=== PATIENT | female | born 1955 | race Caucasian/White ===

== ENCOUNTER → 2017-03-09 | Outpatient (CLI) | payer OTHER ==
--- NOTE | 2017-03-09 14:22 | XR ---
EXAMINATION TYPE: XR shoulder complete RT DATE OF EXAM: 03/09/2017 2:18 PM COMPARISON: NONE HISTORY: Pain TECHNIQUE: Three views are submitted. FINDINGS: The osseous structures are intact. There is no acute fracture or dislocation. The AC joint is maint ained. Chronic rib deformity on the right. Stable from 05/02/2015. Nodular density appears stable from 2014 likely related to the anterior margin of the first rib. IMPRESSION: 1. No acute process.
--- NOTE | 2017-03-11 11:53 | MM ---
Reason for exam: screening (asymptomatic). Last mammogram was performed 1 year and 6 months ago. History: Patient is postmenopausal. Physical Findings: A clinical breast exam by your physician is recommended on an annual basis and results should be correlated with mammographic findings. MG Screening Mammo w CAD Bilateral CC and MLO view(s) were taken. Prior study comparison: September 05, 2015, bilateral MG screening mammo w CAD. April 24, 2014, bilateral MG screening mammo w CAD. There are scattered fibroglandular densities. No significant changes when compared with prior studies. ASSESSMENT: Negative, BI-RAD 1 RECOMMENDATION: Routine screening mammogram of both breasts in 1 year.
== END | disposition home or self-care (01) ==
LOC: RADMAMWWP 13:51
PROVIDERS: ATTEND Family Medicine
DX: Z12.31 Encounter for screening mammogram for malignant neoplasm of breast (principal); M25.511 Pain in right shoulder
CPT/HCPCS: 73030; G0202

== ENCOUNTER → 2017-06-17 | Outpatient (CLI) | payer OTHER ==
[2017-06-17 13:44] LABS: EKG EKG PERFORMED
[2017-06-17 14:19] LABS: Basophils % (A) 1 %; CH 34.9; CHCM 34.4; Eosinophils # (A) 0.1 k/uL (0-0.7); Eosinophils % (A) 2 %; HCT 46.5 % (34.0-46.0); HGB 15.8 gm/dL (11.4-16.0); Luc % (Auto) 1; Lymphocytes # (A) 1.3 k/uL (1.0-4.8); Lymphocytes % (A) 18 %; MCH 34.6 pg (25.0-35.0); MCHC 33.9 g/dL (31.0-37.0); MCV 101.9 fL (80.0-100.0); Macrocytosis Slight; Mean Platelet Volume 8.6; Monocytes # (A) 0.4 k/uL (0-1.0); Monocytes % (A) 6 %; Neutrophils # (A) 5.1 k/uL (1.3-7.7); Neutrophils % (A) 72 %; RBC 4.56 m/uL (3.80-5.40); RDW 13.7 % (11.5-15.5)
[2017-06-17 14:22] LABS: Anion Gap 9 mmol/L; Blood Urea Nitrogen 12 mg/dL (7-17); Calcium 9.6 mg/dL (8.4-10.2); Carbon Dioxide 23 mmol/L (22-30); Chloride 108 mmol/L (98-107); Glucose 97 mg/dL (74-99); Non-African American GFR(MDRD) >60 (>60 ml/min/1.73 sqM); Potassium 4.6 mmol/L (3.5-5.1); Sodium 140 mmol/L (137-145)
[2017-06-17 14:23] LABS: Appearance,Urine Clear (Clear); Bilirubin,Urine Negative (Negative); Glucose,Urine (UA) Negative (Negative); Ketones,Urine Negative (Negative); Leukocyte Esterase,Urine Negative (Negative); Mucus,Urine Rare /hpf; Nitrite,Urine Negative (Negative); PH, Urine 6.5 (5.0-8.0); Particle Count 1704; Protein,Urine Negative (Negative); Prothrombin Time 10.1 sec (9.0-12.0); RBC,Urine 2 /hpf (0-5); Specific Gravity,Urine 1.013 (1.001-1.035); Squamous Epithelial Cell,Urine 1 /hpf (0-4); UA Billing (MACRO vs. MICRO) MICRO; Urobilinogen,Urine <2.0 mg/dL (<2.0); WBC,Urine 1 /hpf (0-5)
--- NOTE | 2017-06-17 14:38 | XR ---
EXAMINATION TYPE: XR chest 2V DATE OF EXAM: 06/17/2017 COMPARISON: Prior chest x-ray 05/02/2015 HISTORY: Presurgical testing TECHNIQUE: Frontal and lateral views of the chest are obtained. FINDINGS: Right upper lobe chest wall deformity shows a stable appearance. No evident pneumonia, pne umothorax, or pleural effusion. There may be spinal curvature. Cardiac mediastinal silhouette, pulmon rena vascularity and elsa within normal limits. IMPRESSION: Fourth rib on the right shows an asymmetric appearance as on prior exam. No acute abnorm alities evident.
== END | disposition home or self-care (01) ==
LOC: LABPAT 13:34
PROVIDERS: ATTEND Orthopaedic Surgery Orthopaedic Surgery of the Spine
DX: Z01.818 Encounter for other preprocedural examination (principal); M95.4 Acquired deformity of chest and rib; M48.02 Spinal stenosis, cervical region; Z01.810 Encounter for preprocedural cardiovascular examination
CPT/HCPCS: 36415; 71020; 80048; 81001; 85025; 85610; 85730; 93005

== ENCOUNTER 2017-06-24 15:05 | Inpatient (IN) | payer OTHER ==
[2017-06-19 14:43] VITALS: BMI 32.4
[2017-07-08] MEDS ORDERED: ceFAZolin 2 GM in SODIUM CHLORIDE 0.9% 100 ML IVPB ONE (05:00)
[2017-07-08] MEDS ORDERED: BACITRACIN 50,000 UNIT, POLYMYXIN B 500,000 UNIT in SODIUM CHLORIDE 0.9% IRRIGATIO 1,00... IRRIGATION ONE (05:00)
[2017-07-08] MEDS ORDERED: ONDANSETRON 4 MG/2 ML VIAL IVP ONE ×2 (06:10)
[2017-07-08] MEDS ORDERED: HYDROmorphone 1 MG/ML 1 ML SYRINGE IVP PRN ×3 (06:10→16:37)
[2017-07-08] MEDS ORDERED: LACTATED RINGERS 1,000 ML IV SCH (06:10)
[2017-07-08] MEDS ORDERED: DEXAMETHASONE SOD PHOSPHATE 10 MG/ML 1 ML VIAL IV ONE ×2 (06:10)
[2017-07-08] MEDS ORDERED: LIDOCAINE 1% 20 ML VIAL (10MG/ML) FOR IV START INTRADERMA ONE (13:27)
[2017-07-08] MEDS ORDERED: GELATIN SPONGE,ABSORB (LARGE) 1 EACH SPONGE TOPICAL ONE (14:12)
[2017-07-08] MEDS ORDERED: LIDOCAINE 0.5% (PF) 5 MG/ML (50 ML SDV) SQ ONE (14:12)
[2017-07-08] MEDS ORDERED: THROMBIN (BOVINE) 5,000 UNIT VIAL TOPICAL ONE (14:12)
[2017-07-08] MEDS ORDERED: SODIUM CHLORIDE 0.9% 100 ML with CLINDAMYCIN 600 MG IV ONE ×2 (14:22)
--- NOTE | 2017-07-08 15:36 | XR ---
EXAMINATION TYPE: XR cervical spine 1V DATE OF EXAM: 07/08/2017 COMPARISON: NONE HISTORY: Needle placement TECHNIQUE: 1 intraoperative view submitted FINDINGS: ET and NG tube are noted with a surgical instrument overlying the mid cervical spine with m ultilevel degenerative disc disease. IMPRESSION: Intraoperative localization.
[2017-07-08] MEDS ORDERED: ONDANSETRON 4 MG/2 ML VIAL IVP PRN (16:37)
[2017-07-08] MEDS ORDERED: DIAZEPAM 5 MG TAB PO PRN (16:37)
[2017-07-08] MEDS ORDERED: BENZOCAINE/MENTHOL LOZENG 1 EACH LOZENGE MUCOUS MEM PRN (16:37)
--- NOTE | 2017-07-08 16:50 | P.OP ---
Date of Procedure: 07/08/17 Preoperative Diagnosis: Cervical stenosis C3 4 C4 5 with severe cervical stenosis C5 6, degenerative disc disease, neck pain, bilateral upper extremity radiculopathy Postoperative Diagnosis: Same Procedure(s) Performed: Implants: Anesthesia: GETA Pathology: none sent Condition: stable Disposition: PACU Indications for Procedure: Operative Findings: Description of Procedure: BRIEF OPERATIVE NOTE Preoperative Diagnosis: Severe cervical stenosis C5 6 with cervical stenosis C4 5 and C3 4, degenerative disc disease, neck pain, bilateral upper extremity radiculopathy Postoperative Diagnosis: Same Procedure: Anterior cervical decompression with discectomy and fusion C3 4, C4 5, C5 6 Placement of interbody graft C3 4, C4 5, C5 6 Application of anterior cervical plate C3 4 5 and 6 Surgeon: Dr. Haynes Algology Teacher: Lenny LLOYD who is present throughout the entire the case persistence during positioning, dissection, exposure, visualization, and all crucial elements of the case as well as closure. Anesthesia: General anesthesia per Dr. Fuller Estimated blood loss: Approximately 100 mL Complications: None apparent Components implanted: K2M Starke anterior cervical plate system with screws and Vikos interbody allograft spacers and 1 mL of DBX bone putty to supplemental bone graft, Disposition: To recovery room in good stable condition. OPERATIVE INDICATIONS The patient has had long-standing issues in their neck and upper extremities. she was found have severe stenosis at her cervical spine with evidence of disc degeneration cervical osteophytes and degenerative disc disease. These findings correlated well with her neck and upper extremity symptoms. The patient has been through conservative treatment. she is not having a prolonged benefit despite aggressive conservative treatment. We discussed various treatment options including surgery, and the patient wishes to proceed with surgery We discussed the risk, patient's alternatives and benefits of surgery including but not limited to, risk of bleeding risk of infection, risk of need for further surgery, risk of decreased, loss of motion, muscle function , malunion nonunion, hardware failure, nerve damage, paralysis, heart attack, and . OPERATIVE SUMMARY After discussing all the risks, patient alternatives and benefits at length, the patient elected to proceed with surgical intervention, signed informed consent, and presented for their procedure. The patient was seen and examined in the preoperative holding area and the surgical site was marked. The patient was given antibiotics and brought to the operating room. The patient was positioned on the operating room table in a supine position being careful to pad any bony prominences and pressure points. The patient was sedated and intubated by anesthesia in standard fashion. Once the airway and C- spine were stabilized the patient's arms were padded and tucked at her side, with her shoulders gently taped. The head was placed in a donut pad with the neck in good neutral alignment and position. We were careful to maintain the patient's cervical spine and good neutral alignment and position throughout. The patient was prepped and draped in a normal standard fashion. An appropriate timeout and keystone protocol performed. We were able to proceed with the surgery. The local wound area was infiltrated with local anesthetic. An incision was made transversely approximately 2-1/2 cm over the appropriate levels At C5 on the right. Dissection was taken down subcutaneously to the level of the platysma which was split in line with its fibers. Dissection was taken with a carotid approach, with the trachea and esophagus medial and the carotid sheath laterally. We dissected down to the anterior surface of the vertebral bodies From C3 to C6. Intraoperative x-ray was taken which showed a marker at the appropriate level At C4 5. With the appropriate level positively confirmed, we were able to proceed with discectomy at the appropriate levels At C3 4 C4 5 C5 6. All of the operative levels were exposed appropriately. The patient had all their twitches back, and there was no evidence of recurrent laryngeal issue. The wound was copiously irrigated and suctioned dry as had been done periodically throughout the case. At the appropriate level/levels, starting at C5 6 and then working the C4 5 and then C3 4, I established an annulotomy with an 11 blade scalpel. A discectomy was performed with a combination of pituitary rongeurs, curettes, a high-speed bur, and Kerrison rongeurs. The posterior longitudinal ligament was taken down as were any posterior osteophytes. This gave good central and bilateral foraminal decompression. note was made of severe stenosis particularly at C56 with the wrist large posterior osteophytes which were manually removed. At C3 4 and C4 5 there was significant stenosis as well and this was remedied with the decompression and discectomy as well as removal of posterior osteophytes and laminotomy. There is no evidence of any dural tear or leak. The endplates were prepared with a high-speed bur. With the endplates in good parallel position, I was able to size for the appropriate size interbody graft. The wound was irrigated and suctioned dry the graft was prepared and malleted into position. It had good alignment and position with the anterior surface flush with the anterior surface of the vertebral bodies. This was done similarly the appropriate levels First at C5 6 and then at C4 5 and then at C3 4. With the grafts intact, I was able to measure and contour and appropriate sized plate. The plate was positioned at the midline over the appropriate levels From C3 to 6. Screw holes were established with a hand drill and drill guide. Screws were placed in good alignment and position with excellent bony purchase. They were seated under the locking device. The construct was checked and found to be stable. Intraoperative x-ray was taken which showed good alignment and position of the implants at the appropriate levels. There was no evidence of any dural tear or leak. Good hemostasis was maintained. The wound was copiously irrigated and suctioned dry as had been done periodically throughout the case. The platysma was closed with absorbable suture. The subcutaneous tissue was closed. The subcuticular tissue was closed with absorbable suture. The wound was cleaned and dried and dressed appropriately. A soft cervical collar was placed appropriately. The patient was woken up by anesthesia, extubated, transferred back gently to their hospital bed and brought to the recovery room in good stable condition. The patient will be admitted to the hospital for appropriate postoperative care , medical management and monitoring. We will continue to follow them closely about the postoperative course.
[2017-07-08 17:19] VITALS: RESP 16
[2017-07-08] MEDS ORDERED: PANTOPRAZOLE 40 MG TABLET PO SCH (17:30)
[2017-07-08] MEDS: LACTATED RINGERS 1,000 ML IV SCH (17:43)
[2017-07-08] MEDS ORDERED: LABETALOL 5 MG/ML VIAL MDV IVP ONE (18:24)
[2017-07-08] MEDS: HYDROmorphone 1 MG/ML 1 ML SYRINGE IVP PRN (19:18)
[2017-07-08] MEDS: SODIUM CHLORIDE 0.9% 1,000 ML IV SCH (21:33)
[2017-07-08] MEDS: HYDROcodone/APAP 5-325MG 1 EACH TAB PO PRN (23:59)
[2017-07-09] MEDS: LACTATED RINGERS 1,000 ML IV SCH (06:09)
[2017-07-09] MEDS: SODIUM CHLORIDE 0.9% 1,000 ML IV SCH (06:20)
--- NOTE | 2017-07-09 07:31 | P.CONS ---
History of Present Illness - Reason for Consult Consult date: 07/09/17 - Chief Complaint Cervical radiculopathy. - History of Present Illness This is a 62-year-old white female essentially admitted for surgical repair for cervical radiculopathy. The patient is with significant DJD and disc herniation. The patient is seen postop day 1 doing quite well. Pain is minimal. No sniffing nausea or vomiting. Review of Systems Constitutional: Denies chills, Denies fever Eyes: denies blurred vision, denies pain Ears, nose, mouth and throat: Reports as per HPI Cardiovascular: Denies chest pain, Denies shortness of breath Respiratory: Denies cough Gastrointestinal: Denies abdominal pain, Denies diarrhea, Denies nausea, Denies vomiting Musculoskeletal: Reports as per HPI Integumentary: Denies pruritus, Denies rash Neurological: Denies numbness, Denies weakness Endocrine: Denies fatigue, Denies weight change Past Medical History Past Medical History: GERD/Reflux, Hypertension Additional Past Medical History / Comment(s): POST MENOPAUSAL BLEEDING History of Any Multi-Drug Resistant Organisms: None Reported Past Surgical History: Tubal Ligation Additional Past Surgical History / Comment(s): COLONOSCOPY Past Anesthesia/Blood Transfusion Reactions: Unable to Obtain Smoking Status: Current every day smoker - Past Family History Mother Family Medical History: Cancer Additional Family Medical History / Comment(s): OVARIAN Medications and Allergies Home Medications Medication Instructions Recorded Confirmed Type Bisoprolol-Hctz 5-6.25 mg [Ziac 1 tab PO DAILY 05/31/14 07/08/17 History 5-6.25 MG] Omeprazole [PriLOSEC] 20 mg PO Q48H 05/31/14 07/08/17 History Calcium Carbonate 1,000 mg PO DAILY 06/19/17 07/08/17 History Cholecalciferol (Vitamin D3) 10,000 unit PO DAILY 06/19/17 07/08/17 History [Vitamin D3] Naproxen Sodium [Aleve] 440 mg PO BID PRN 06/19/17 07/08/17 History Naproxen [Naprosyn] 500 mg PO Q12HR PRN 06/19/17 07/08/17 History Allergies Allergy/AdvReac Type Severity Reaction Status Date / Time Penicillins Allergy Unknown Rash/Hives Verified 07/08/17 20:08 iodine Allergy Rash/Hives Verified 07/08/17 20:08 when used topical Physical Exam Vitals: Vital Signs Temp Pulse Pulse Resp BP Pulse Ox 07/09/17 00:00 82 103 H 16 07/08/17 22:00 98 F 103 H 16 131/75 96 07/08/17 18:33 82 16 140/81 98 07/08/17 18:17 79 16 177/80 98 07/08/17 18:03 87 16 163/84 98 07/08/17 17:48 87 16 164/86 98 07/08/17 17:33 83 16 145/78 98 07/08/17 17:15 83 16 142/84 98 07/08/17 17:06 97.2 F L 86 16 160/84 92 L 07/08/17 13:17 98.2 F 60 20 161/90 100 Intake and Output 07/08/17 07/09/17 07/09/17 22:59 06:59 14:59 Intake Total 636 919 Output Total 335 Balance 301 919 Intake: IV 156 Intake, IV Titration 919 Amount Clindamycin 900 mg In 50 Dextrose 5% in Water 50 ml @ 100 mls/hr IVPB Q8HR [facility] Rx#:[id number] Sodium Chloride 0.9% 1, 869 000 ml @ 75 mls/hr IV . [id number] [facility] Rx#:[id number] Oral 480 Output: Urine 235 Estimated Blood Loss 100 Other: Voiding Method Toilet # Voids 2 2 Weight 83.007 kg - Constitutional General appearance: no acute distress - EENT Eyes: EOMI - Neck Neck: no lymphadenopathy - Respiratory Respiratory: bilateral: CTA - Cardiovascular Rhythm: regular Heart sounds: normal: S1, S2 - Gastrointestinal General gastrointestinal: soft, no tenderness - Neurologic Neurologic: CNII-XII intact - Psychiatric Psychiatric: A&O x's 3, appropriate affect, intact judgment & insight Assessment and Plan (1) Cervical radiculopathy at C5 Status: Acute Plan: Patient is seen postop from a medical perspective. Pulmonary toilet will be instituted post surgically. Reconcile all medications as necessary. See orders otherwise. Despite discharge once cleared by surgery. Time with Patient: Less than 30
[2017-07-09] MEDS: HYDROcodone/APAP 5-325MG 1 EACH TAB PO PRN (07:58)
[2017-07-09] MEDS: CLINDAMYCIN 900 MG in DEXTROSE 5% IN WATER 50 ML IVPB SCH ×4 (07:59)
[2017-07-09] MEDS: HYDROmorphone 1 MG/ML 1 ML SYRINGE IVP PRN (07:59)
[2017-07-09 08:45] VITALS: BP 148/83; TEMP 98.2
[2017-07-09] MEDS ORDERED: BISOPROLOL-HCTZ 5-6.25 MG 1 EACH TAB PO SCH (09:00)
[2017-07-09] MEDS ORDERED: SENNOSIDES-DOCUSATE SODIUM 1 EACH TAB PO SCH ×2 (09:00)
--- NOTE | 2017-07-09 09:03 | XR ---
EXAMINATION TYPE: XR cervical spine 1V DATE OF EXAM: 07/08/2017 COMPARISON: NONE HISTORY: Postop TECHNIQUE: One lateral views submitted FINDINGS: ET and NG tube noted. Postsurgical change appears in near-anatomic alignment. Portions of the cervical spine limited by ove rlying soft tissue overlap. IMPRESSION: Postsurgical change in near-anatomic alignment.
[2017-07-09] MEDS ORDERED: CALCIUM CARBONATE 500 MG CHEWABLE PO SCH (12:00)
[2017-07-09] MEDS ORDERED: CHOLECALCIFEROL 1,000 UNIT TAB PO SCH (12:00)
[2017-07-09 13:26] VITALS: PULSE 97
== END 2017-07-09 13:20 | disposition home or self-care (01) | DRG 473 ==
LOC: 2ORMAIN 07-08 12:54 → 5MS5E 07-08 17:27
PROVIDERS: ADMIT Orthopaedic Surgery Orthopaedic Surgery of the Spine; ATTEND Orthopaedic Surgery Orthopaedic Surgery of the Spine
PROC: 0RT30ZZ Resection of Cervical Vertebral Disc, Open Approach (ICD-10-PCS; principal; 2017-07-08 14:45)
PROC: 0RG20J0 Fusion of 2 or more Cervical Vertebral Joints with Synthetic Substitute, Anterior Approach, Anterior Column, Open Approach (ICD-10-PCS; principal; 2017-07-08 14:45)
DX: M48.02 Spinal stenosis, cervical region (principal); I10 Essential (primary) hypertension; M50.11 Cervical disc disorder with radiculopathy, high cervical region; F17.200 Nicotine dependence, unspecified, uncomplicated; K21.9 Gastro-esophageal reflux disease without esophagitis; Z79.899 Other long term (current) drug therapy; Z88.3 Allergy status to other anti-infective agents; Z88.0 Allergy status to penicillin
CPT/HCPCS: 72020; 86850; 86900; 86901

== ENCOUNTER → 2018-09-02 | Outpatient (CLI) | payer BC ==
--- NOTE | 2018-09-06 08:28 | MM ---
Reason for exam: screening (asymptomatic). Last mammogram was performed 1 year and 6 months ago. History: Patient is postmenopausal. Physical Findings: A clinical breast exam by your physician is recommended on an annual basis and results should be correlated with mammographic findings. MG Screening Mammo w CAD Bilateral CC and MLO view(s) were taken. Prior study comparison: March 09, 2017, bilateral MG screening mammo w CAD. September 05, 2015, bilateral MG screening mammo w CAD. There are scattered fibroglandular densities. No suspicious abnormality. No significant changes when compared with prior studies. ASSESSMENT: Negative, BI-RAD 1 RECOMMENDATION: Routine screening mammogram of both breasts in 1 year.
== END | disposition home or self-care (01) ==
LOC: RADMAMWWP 11:03
PROVIDERS: ATTEND Obstetrics & Gynecology
DX: Z12.31 Encounter for screening mammogram for malignant neoplasm of breast (principal)
CPT/HCPCS: 77067

== ENCOUNTER → 2019-08-08 | Outpatient (CLI) | payer BC ==
--- NOTE | 2019-08-08 08:52 | US ---
EXAMINATION TYPE: US liver DATE OF EXAM: 08/08/2019 COMPARISON: CT & US May 02 2015 CLINICAL HISTORY: R94.5 Abnormal LFTS. Abnormal liver function test, patient states no other symptoms . EXAM MEASUREMENTS: Liver Length: 15.5 cm Gallbladder Wall: 0.2 cm CBD: 0.6 cm Right Kidney: 11.5 x 5.1 x 4.6 cm Pancreas: limited by overlying midline bowel gas Liver: attenuating, heterogeneous, decreased visualization of vessels suggestive of fatty infiltrate Gallbladder: wnl Evidence for sonographic Dougherty's sign: no CBD: Within normal limits for age Right Kidney: wnl There is no ascites. IMPRESSION: Findings compatible with hepatic steatosis. Limited exam.
== END | disposition home or self-care (01) ==
LOC: RADUSMAIN 07:52
PROVIDERS: ATTEND Family Medicine
DX: R94.5 Abnormal results of liver function studies (principal)
CPT/HCPCS: 76705

== ENCOUNTER → 2020-09-13 | Outpatient (CLI) | payer BC ==
--- NOTE | 2020-09-17 09:02 | MM ---
Reason for exam: screening (asymptomatic). Last mammogram was performed 2 years ago. History: Patient is postmenopausal. Physical Findings: A clinical breast exam by your physician is recommended on an annual basis and results should be correlated with mammographic findings. MG Screening Mammo w CAD Bilateral CC and MLO view(s) were taken. Prior study comparison: September 02, 2018, bilateral MG screening mammo w CAD. March 09, 2017, bilateral MG screening mammo w CAD. There are scattered fibroglandular densities. No significant changes when compared with prior studies. ASSESSMENT: Negative, BI-RAD 1 RECOMMENDATION: Routine screening mammogram of both breasts in 1 year.
== END | disposition home or self-care (01) ==
LOC: RADMAMWWP 16:25
PROVIDERS: ATTEND Family Medicine
DX: Z12.31 Encounter for screening mammogram for malignant neoplasm of breast (principal)
CPT/HCPCS: 77067

== ENCOUNTER 2023-04-07 21:27 | Emergency (ER) | payer BC, OTHER ==
[2023-04-07 21:41] VITALS: RESP 18; TEMP 98.6
[2023-04-07] MEDS ORDERED: SODIUM CHLORIDE 0.9% 1,000 ML IV STA (21:47)
[2023-04-07] MEDS ORDERED: diphenhydrAMINE 50 MG/ML 1 ML VIAL IVP STA (21:48)
[2023-04-07] MEDS ORDERED: FAMOTIDINE 20 MG/2 ML VIAL IV STA (21:48)
[2023-04-07] MEDS ORDERED: LIDOCAINE 5% PATCH TOPICAL STA (21:48)
[2023-04-07] MEDS ORDERED: methylPREDNISolone SOD SUCCI 125 MG/2 ML VIAL IV STA (21:48)
[2023-04-07 22:20] LABS: Basophils % (A) 0 %; Eosinophils # (A) 0.2 k/uL (0-0.7); Eosinophils % (A) 2 %; HCT 39.8 % (34.0-46.0); HGB 13.7 gm/dL (11.4-16.0); Lymphocytes # (A) 2.1 k/uL (1.0-4.8); Lymphocytes % (A) 25 %; MCH 33.2 pg (25.0-35.0); MCHC 34.4 g/dL (31.0-37.0); MCV 96.6 fL (80.0-100.0); Mean Platelet Volume 8.4; Monocytes # (A) 0.4 k/uL (0-1.0); Monocytes % (A) 5 %; Neutrophils # (A) 5.5 k/uL (1.3-7.7); Neutrophils % (A) 65 %; Platelet Count 235 k/uL (150-450); RBC 4.12 m/uL (3.80-5.40); RDW 12.8 % (11.5-15.5); WBC 8.4 k/uL (3.8-10.6)
--- NOTE | 2023-04-07 22:23 | ED ---
General Adult HPI - General Chief complaint: Chest Pain Stated complaint: Left sided arm pain Time Seen by Provider: 04/07/23 21:30 Source: patient, RN notes reviewed, old records reviewed Mode of arrival: EMS Limitations: no limitations - History of Present Illness Initial comments: Patient is a 67-year-old female who presents via EMS for evaluation of chest pain. Patient's complaining of one day of left shoulder pain and has had some episodes of radiation of the pain across the anterior aspect of her chest and across her back towards her right shoulder. Primary complaint is over the left shoulder she does have some chronic pain in secondary to rotator cuff issues. Denies any cardiac disease. States the shoulder pain is over the lateral and posterior shoulder with radiation towards the neck along the trapezius muscle. Worse with some movement of the arm. States that the shoulder pains are more this morning but then the radiation of the pain started while she was cooking. It resolves when resting, and with a heating pad. Returned again when she laid down to go to bed laying on that left shoulder. Currently is only complaining of the shoulder pain. Presents here for evaluation at this time. - Related Data Home Medications Medication Instructions Recorded Confirmed Bisoprolol-Hctz 5-6.25 mg [Ziac 1 tab PO DAILY 05/31/14 07/08/17 5-6.25 MG] Omeprazole [PriLOSEC] 20 mg PO Q48H 05/31/14 07/08/17 Calcium Carbonate 1,000 mg PO DAILY 06/19/17 07/08/17 Cholecalciferol (Vitamin D3) 10,000 unit PO DAILY 06/19/17 07/08/17 [Vitamin D3] Naproxen Sodium [Aleve] 440 mg PO BID PRN 06/19/17 07/08/17 Naproxen [Naprosyn] 500 mg PO Q12HR PRN 06/19/17 07/08/17 Previous Rx's Medication Instructions Recorded HYDROcodone/APAP 5-325MG [[place] 5] 1 each PO Q6HR PRN #90 tab 07/09/17 Lidocaine 5% Patch [Lidoderm 5% 1 patch TOPICAL DAILY PRN 14 Days 04/08/23 Patch] #14 patch Allergies Allergy/AdvReac Type Severity Reaction Status Date / Time Penicillins Allergy Unknown Rash/Hives Verified 07/08/17 20:08 iodine Allergy Rash/Hives Verified 07/08/17 20:08 when used topical Review of Systems ROS Statement: Those systems with pertinent positive or pertinent negative responses have been documented in the HPI. Review of Systems: CONST: Denies fever EYES: Denies blurry vision ENT: Denies nasal congestion C/V: Denies Chest pain RESP: Denies shortness of breath GI: Denies abdominal pain : Denies dysuria SKIN: Denies rash. MSK: Endorses left shoulder pain NEURO: Denies headache ROS Other: All systems not noted in ROS Statement are negative. Past Medical History Past Medical History: GERD/Reflux, Hypertension Additional Past Medical History / Comment(s): POST MENOPAUSAL BLEEDING History of Any Multi-Drug Resistant Organisms: None Reported Past Surgical History: Tubal Ligation Additional Past Surgical History / Comment(s): COLONOSCOPY Past Anesthesia/Blood Transfusion Reactions: Unable to Obtain Past Psychological History: No Psychological Hx Reported Past Alcohol Use History: Occasional Past Drug Use History: None Reported - Past Family History Mother Family Medical History: Cancer Additional Family Medical History / Comment(s): OVARIAN General Exam - General Exam Comments Initial Comments: General: Appears in no acute distress. HEAD: Normal with no signs of head trauma. EYES: PERRLA, EOMI, conjunctiva normal, no discharge. ENT: Hearing grossly intact, normal oropharynx. RESPIRATORY: Clear breath sounds bilaterally. No wheezes, rales, or rhonchi. C/V: Regular rate and rhythm. S1 and S2 auscultated, no edema, peripheral pulses 2+ and intact throughout ABD: Abd is soft, nontender, nondistended EXT: Normal range of motion, no obvious deformity. Reproducible pain over the left trapezius muscle with radiation of the pain along the muscle bodies in his shoulder and into the neck. No midline cervical or thoracic spine tenderness to palpation. No reproducible chest pain at this time. Reproducible pain in the right shoulder at this time. SKIN: No rashes or lesions observed on exposed skin. NEURO: Alert and oriented x 4. Cranial nerves II-XII intact. No focal sensory or strength deficits. Limitations: no limitations Course Vital Signs 04/07/23 04/08/23 21:37 00:37 Temperature 98.6 F Pulse Rate 65 68 Respiratory 18 18 Rate Blood Pressure 164/72 148/70 O2 Sat by Pulse 96 96 Oximetry Medical Decision Making - Medical Decision Making Was pt. sent in by a medical professional or institution ([facility], [employer], urgent care, hospital, or residential...) When possible be specific @ -No Did you speak to anyone other than the patient for history (EMS, parent, family, police, friend...)? What history was obtained from this source @ -No Did you review nursing and triage notes (agree or disagree)? Why? @ -I reviewed and agree with nursing and triage notes Were old charts reviewed (outside hosp., previous admission, EMS record, old EKG, old radiological studies, urgent care reports/EKG's, residential records)? Report findings @ -No old charts were reviewed Differential Diagnosis (chest pain, altered mental status, abdominal pain women, abdominal pain men, vaginal bleeding, weakness, fever, dyspnea, syncope, headache, dizziness, GI bleed, back pain, seizure, CVA, palpatations, mental health, musculoskeletal)? @ -Differential Chest Pain: Stable Angina, Unstable Angina, STEMI, NSTEMI Aortic Dissection, Pneumothorax, Musculoskeletal, Esophageal Spasm GERD, Cholecystitis, Pancreatitis, Zoster, this is not meant to be an all-inclusive list. EKG interpreted by me (3pts min.). @ -As above X-rays interpreted by me (1pt min.). @ -Chest x-ray reveals no obvious acute cardio pulmonary process. Shoulder x- ray reveals no obvious injury. CT interpreted by me (1pt min.). @ -CT angiogram revealed no evidence of aortic injury, no obvious acute process present. U/S interpreted by me (1pt. min.). @ -None done What testing was considered but not performed or refused? (CT, X-rays, U/S, labs)? Why? @ -None What meds were considered but not given or refused? Why? @ -None Did you discuss the management of the patient with other professionals (professionals i.e. [facility] Rivera, [employer], lab, RT, psych nurse, social services manager, pick up truck driver, teacher, transit authority police officer, supportive employment case manager)? Give summary @ -No Was smoking cessation discussed for >3mins.? @ -No Was critical care preformed (if so, how long)? @ -No Were there social determinants of health that impacted care today? How? (Homelessness, low income, unemployed, alcoholism, drug addiction, transportation, low edu. Level, literacy, decrease access to med. care, penitentiary, rehab)? @ -No Was there de-escalation of care discussed even if they declined (Discuss DNR or withdrawal of care, Hospice)? DNR status @ -No What co-morbidities impacted this encounter? (DM, HTN, Smoking, COPD, CAD, Cancer, CVA, ARF, Chemo, Hep., AIDS, mental health diagnosis, sleep apnea, morbid obesity)? @ -None Was patient admitted / discharged? Hospital course, mention meds given and route, prescriptions, significant lab abnormalities, going to OR and other pertinent info. @ -Based on the patient's presentation and physical exam, I'm concerned for possible cardiopulmonary etiology for current symptoms. Also cannot rule out dissection considering the radiation of her pain, as well as other symptoms. D id discuss this with the patient with both agreed to obtain CT angiogram to evaluate the aorta as well as chest x-ray, left shoulder x-ray and cardiac labs. Pain has been present all day. We will hold aspirin at this time until CT angios completed. She'll be sent directly treated with IV fluids as well as lidocaine patch. She does have an iodine ALLERGY listed but has received contrast dye in the past without issue but we will empirically treat her for an ALLERGY with Benadryl, Pepcid, Solu Medrol. She was in agreement with this plan. Vital signs are within acceptable limits. Patient's labs returned remarkable for an undetectable troponin. Remainder of the labs are within acceptable limits. Imaging is unremarkable. EKG showed no evidence of acute ischemia. On reevaluation, patient is feeling improved. We discussed she is likely experiencing left shoulder pain secondary to muscle strain. I believe it is safer to be discharged at this time. She was in agreement this plan. Strict return precautions discussed. Her atypical chest pain has not been present throughout his stay in the department. Heart score is low at 3. I will provide the patient with a prescription for lidocaine patch. I instructed the patient to follow up with their PCP in the next 1-3 days. . I explained that the patient should return to the emergency department if they experience any worsening symptoms. Strict return precautions were discussed with the patient. The patient expressed understanding of these instructions. I answered all questions that the patient had. The patient was discharged home in good condition with their prescriptions and follow up information. Undiagnosed new problem with uncertain prognosis? @ -No Drug Therapy requiring intensive monitoring for toxicity (Heparin, Nitro, Insulin, Cardizem)? @ -No Were any procedures done? @ -No Diagnosis/symptom? @ -Muscle strain, atypical chest pain Acute, or Chronic, or Acute on Chronic? @ -Acute Uncomplicated (without systemic symptoms) or Complicated (systemic symptoms)? @ -Uncomplicated Side effects of treatment? @ -none Exacerbation, Progression, or Severe Exacerbation] @ -no Poses a threat to life or bodily function? @ -no - Lab Data Result diagrams: 04/07/23 21:57 04/07/23 21:57 Lab Results 04/07/23 04/07/23 04/07/23 Range/Units 21:57 21:57 21:57 WBC 8.4 (3.8-10.6) k/uL RBC 4.12 (3.80-5.40) m/uL Hgb 13.7 (11.4-16.0) gm/dL Hct 39.8 (34.0-46.0) % MCV 96.6 (80.0-100.0) fL MCH 33.2 (25.0-35.0) pg MCHC 34.4 (31.0-37.0) g/dL RDW 12.8 (11.5-15.5) % Plt Count 235 (150-450) k/uL MPV 8.4 Neutrophils % 65 % Lymphocytes % 25 % Monocytes % 5 % Eosinophils % 2 % Basophils % 0 % Neutrophils # 5.5 (1.3-7.7) k/uL Lymphocytes # 2.1 (1.0-4.8) k/uL Monocytes # 0.4 (0-1.0) k/uL Eosinophils # 0.2 (0-0.7) k/uL Basophils # 0.0 (0-0.2) k/uL PT 10.0 (9.0-12.0) sec INR 0.9 (<1.2) APTT 27.5 (22.0-30.0) sec Sodium 137 (137-145) mmol/L Potassium 3.7 (3.5-5.1) mmol/L Chloride 101 (98-107) mmol/L Carbon Dioxide 21 L (22-30) mmol/L Anion Gap 15 mmol/L BUN 9 (7-17) mg/dL Creatinine 0.42 L (0.52-1.04) mg/dL Est GFR (CKD-EPI)AfAm >90 (>60 ml/min/1.73 sqM) Est GFR (CKD-EPI)NonAf >90 (>60 ml/min/1.73 sqM) Glucose 93 (74-99) mg/dL Calcium 8.7 (8.4-10.2) mg/dL Magnesium 1.9 (1.6-2.3) mg/dL Total Bilirubin 0.3 (0.2-1.3) mg/dL AST 59 H (14-36) U/L ALT 55 H (4-34) U/L Alkaline Phosphatase 75 (38-126) U/L Troponin I (0.000-0.034) ng/mL NT-Pro-B Natriuret Pep pg/mL Total Protein 6.5 (6.3-8.2) g/dL Albumin 3.9 (3.5-5.0) g/dL 04/07/23 04/07/23 Range/Units 21:57 21:57 WBC (3.8-10.6) k/uL RBC (3.80-5.40) m/uL Hgb (11.4-16.0) gm/dL Hct (34.0-46.0) % MCV (80.0-100.0) fL MCH (25.0-35.0) pg MCHC (31.0-37.0) g/dL RDW (11.5-15.5) % Plt Count (150-450) k/uL MPV Neutrophils % % Lymphocytes % % Monocytes % % Eosinophils % % Basophils % % Neutrophils # (1.3-7.7) k/uL Lymphocytes # (1.0-4.8) k/uL Monocytes # (0-1.0) k/uL Eosinophils # (0-0.7) k/uL Basophils # (0-0.2) k/uL PT (9.0-12.0) sec INR (<1.2) APTT (22.0-30.0) sec Sodium (137-145) mmol/L Potassium (3.5-5.1) mmol/L Chloride (98-107) mmol/L Carbon Dioxide (22-30) mmol/L Anion Gap mmol/L BUN (7-17) mg/dL Creatinine (0.52-1.04) mg/dL Est GFR (CKD-EPI)AfAm (>60 ml/min/1.73 sqM) Est GFR (CKD-EPI)NonAf (>60 ml/min/1.73 sqM) Glucose (74-99) mg/dL Calcium (8.4-10.2) mg/dL Magnesium (1.6-2.3) mg/dL Total Bilirubin (0.2-1.3) mg/dL AST (14-36) U/L ALT (4-34) U/L Alkaline Phosphatase (38-126) U/L Troponin I <0.012 (0.000-0.034) ng/mL NT-Pro-B Natriuret Pep 132 pg/mL Total Protein (6.3-8.2) g/dL Albumin (3.5-5.0) g/dL - EKG Data -: EKG Interpreted by Me EKG Comments: 12-lead Electrocardiogram Interpretation Note EKG was reviewed and interpreted by myself. 12-lead ECG performed at 2223 is interpreted by me as revealing sinus bradycardia at a rate of 59 beats per minute. [place] is normal. [place] interval is 171 ms, QRS duration is 99 ms, QTc is 447 ms.. There were no ST or T wave abnormalities to suggest myocardial ischemia or injury. R wave progression across the precordium was satisfactory. By my interpretation this EKG is non-diagnostic for acute ischemia. Disposition Clinical Impression: Muscle strain, Atypical chest pain Disposition: HOME SELF-CARE Condition: Good Instructions (If sedation given, give patient instructions): Chest Pain (ED), Muscle Strain (ED) Prescriptions: Lidocaine 5% Patch [Lidoderm 5% Patch] 1 patch TOPICAL DAILY PRN 14 Days #14 patch PRN Reason: Pain Is patient prescribed a controlled substance at d/c from ED?: No Referrals: Carlitos Rodriguez MD [Primary Care Provider] - 1-2 days Time of Disposition: 23:59
[2023-04-07 22:28] LABS: INR 0.9 (<1.2); Partial Thromboplastin Time 27.5 sec (22.0-30.0)
[2023-04-07 22:30] LABS: ALT 55 U/L (4-34); AST 59 U/L (14-36); African American GFR (CKD) >90 (>60 ml/min/1.73 sqM); Albumin 3.9 g/dL (3.5-5.0); Alkaline Phosphatase 75 U/L (38-126); Anion Gap 15 mmol/L; Blood Urea Nitrogen 9 mg/dL (7-17); Calcium 8.7 mg/dL (8.4-10.2); Carbon Dioxide 21 mmol/L (22-30); Chloride 101 mmol/L (98-107); Glucose 93 mg/dL (74-99); Magnesium 1.9 mg/dL (1.6-2.3); Non-African American GFR(CKD) >90 (>60 ml/min/1.73 sqM); Potassium 3.7 mmol/L (3.5-5.1); Sodium 137 mmol/L (137-145); Total Bilirubin 0.3 mg/dL (0.2-1.3); Total Protein 6.5 g/dL (6.3-8.2)
--- NOTE | 2023-04-07 23:34 | XR ---
EXAMINATION TYPE: XR shoulder complete LT DATE OF EXAM: 04/07/2023 11:20 PM INDICATION: Patient age:Female; 67 years old; Reason for study: pain; COMPARISON: None TECHNIQUE: The left shoulder was examined in AP, internally rotated and scapular Y projections. FINDINGS: No evidence of acute osseous pathology, joint dislocation, or soft tissue swelling. The remaining por tions of the visualized chest are unremarkable. IMPRESSION: No acute osseous pathology.
--- NOTE | 2023-04-07 23:36 | XR ---
EXAMINATION TYPE: XR chest 1V portable DATE OF EXAM: 04/07/2023 11:20 PM COMPARISON: CT chest from same date TECHNIQUE: XR chest 1V portable Frontal view of the chest. CLINICAL INDICATION:Female, 67 years old with history of chest pain; FINDINGS: Lungs/Pleura: There is no evidence of pleural effusion, focal consolidation, or pneumothorax. Pulmonary vascularity: Unremarkable. Heart/mediastinum: Cardiomediastinal silhouette is unremarkable. Musculoskeletal: No acute osseous pathology. There is fixation hardware in the lower cervical spine. IMPRESSION: No acute cardiopulmonary disease/process.
--- NOTE | 2023-04-07 23:41 | CT ---
EXAMINATION TYPE: CT angio thor/abd pel aorta CT DLP: 2001.8 mGycm, Automated exposure control for dose reduction was used. DATE OF EXAM: 04/07/2023 11:22 PM COMPARISON: 05/02/2015. CLINICAL INDICATION:Female, 67 years old with history of chest pain to back. eval for dissection/aort ic inj; , r/o dissection. chest & abd pain TECHNIQUE: Dissection protocol: Multiple axial CT images of the chest, abdomen, and pelvis were obtai samantha prior and to the administration of IV contrast. 3-D reformats and maximum intensity projection fo rmat were performed on a separate workstation. Contrast used:100 mL of Isovue 370 with IV Contrast, Oral contrast used: None FINDINGS: ARTERIAL VASCULATURE: The aorta is normal in course and caliber. There is no evidence of aortic disse ction, aneurysm or acute aortic injury. Great arch vessels of the aortic arch and the abdomen are pat ent and normal in course and caliber. No evidence for intramural hematoma on noncontrast imaging. Min imal atherosclerotic disease throughout the aorta and its branches. PULMONARY ARTERIAL VASCULATURE: Normal caliber. No evidence of filling defect to suggest pulmonary em bolus. VENOUS SYSTEM: Unremarkable. Lungs/pleura: The lung parenchyma appears unremarkable. Heart: Within normal limits. Mediastinum: No gross evidence of adenopathy. Lower Neck: No significant findings. Abdomen: Liver: Diffuse low-attenuation to the parenchyma. Gallbladder and Bile ducts: Unremarkable. Pancreas: Unremarkable. Spleen: Unremarkable. Adrenal glands: Unremarkable. Kidneys and Ureters: Unremarkable. No hydronephrosis. Bladder: Unremarkable. Reproductive: Unremarkable. Stomach and Bowel: Few scattered colonic diverticula. The appendix is normal. No evidence of bowel ob struction. Peritoneum: No evidence of pneumoperitoneum, free fluid, or adenopathy. Musculoskeletal: The osseous structures appear intact. Hypoplastic right rib #4 anteriorly. Multileve l disc degeneration changes throughout the spine. Lymph nodes: No evidence of lymphadenopathy. Abdominal wall/soft tissues: Unremarkable. IMPRESSION: 1. No evidence for thoracic aortic dissection or aneurysm. 2. No acute abdominal or chest process. 3. Hepatic steatosis.
[2023-04-08] MEDS ORDERED: LIDOCAINE 5% PATCH TOPICAL STA (00:31)
[2023-04-08 00:38] VITALS: BP 148/70; PULSE 68
== END 2023-04-08 00:38 | disposition home or self-care (01) ==
LOC: EC 21:27
DX: S46.012A Strain of muscle(s) and tendon(s) of the rotator cuff of left shoulder, initial encounter (principal); R07.89 Other chest pain; K76.0 Fatty (change of) liver, not elsewhere classified; K21.9 Gastro-esophageal reflux disease without esophagitis; I10 Essential (primary) hypertension; Z79.899 Other long term (current) drug therapy; Z91.041 Radiographic dye allergy status; Z88.0 Allergy status to penicillin; X58.XXXA Exposure to other specified factors, initial encounter; Y93.G3 Activity, cooking and baking
CPT/HCPCS: 36415; 93005; 83880; 80053; 83735; 84484; 85025; 85610; 85730; 73030; 71045; 71275; 74174; 99285; 96374; 96375 ×2; 96361; J1200; J2930; Q9967